=== PATIENT | female | born 1970 | race Caucasian/White ===

== ENCOUNTER 2022-02-11 08:49 | Outpatient (CLI) | payer BC, MEDICAID, SELFPAY ==
--- NOTE | 2022-02-11 11:00 | NEURO_ITS ---
Impression: # Complains of nocturnal paresthesia of hands. # No Carpal Tunnel Syndrome. # No ulnar neuropathy. # Normal needle/EMG exam. Motor Nerve Conduction Upper Extremities Median Nerve Conduction Velocity (m/sec) Terminal Latency (msec) Response Voltage(mV) Elbow-Wrist Wrist Elbow Wrist Right 58 2.9 3 3 Left 60 2.4 2 6 Ulnar Nerve Conduction Velocity (m/sec) Terminal Latency (msec) Response Voltage(mV) Above Elbow Below Elbow Wrist Above Elbow Below Elbow Wrist Right 63 2.0 4 5 Left 63 2.0 7 8 F-Wave Latency Median (ms) Ulnar (ms) Right 24.6 23.9 Left 23.3 24.0 Sensory Nerve Conduction Upper Extremities Median Nerve Stimulation Terminal Latency (msec) Wrist/Digit Response Voltage (uV) Wrist Right 2.9/2.9 63/53 Left 2.7/2.7 76/72 Ulnar Nerve Stimulation Terminal Latency (msec) Wrist/Digit Response Voltage (uV) Wrist Right 2.2 55 Left 2.1 44 Radial Nerve Terminal Latency (msec) Response Voltage(mV) Right 2.0 23 Left 1.7 33 Left Right Muscles Examined Fibrillation Fasciculation Scarcity Voltage Duration Left Right Left Right Left Right Left Right Left Right Deltoid Biceps X X Brachioradialis Triceps X X Pronator Teres X X Ext Indicis X X Ext Digitorum X X Abd Poll Brev X X 1st Dorsal Interosseus X X Abd Dig Min MTDD
== END 2022-02-11 08:50 | disposition home or self-care (01) ==
LOC: ANHNEURO 08:51
PROVIDERS: PCP Family Medicine Adolescent Medicine; Visit Provider Physician Assistant
DX: R20.2 Paresthesia of skin (principal)
CPT/HCPCS: 95886; 95911

== ENCOUNTER 2022-07-30 10:39 | Emergency (ER) | payer MEDICAID, SELFPAY ==
[2022-07-30] VITALS (25 sets, daily range): BP systolic 126–150; BP diastolic 64–90; PULSE 83–97; RESP 14–26; TEMP 36.4; O2SAT 96–100
--- NOTE | ~2022-07-30 | XR_ITS ---
Portable chest x-ray Comparison: 12/13/2009 Clinical History: Syncope, chest pain Findings: Lungs are clear, without focal consolidation or pleural effusion. Cardiomediastinal silho uette is stable. Bones and soft tissues are unremarkable. Impression: Normal chest. Reviewed, dictated and finalized at location . Impression: Normal chest.
[2022-07-30 10:55] LABS: Glucose Point of Care 138 mg/dl (65-105)
--- NOTE | 2022-07-30 11:07 | ECG_ITS ---
Measurements Intervals [place] Rate: 87 P: 12 NM: 124 QRS: 4 QRSD: 92 T: 30 QT: 369 QTc: 444 Interpretive Statements SINUS RHYTHM DELAYED PRECORDIAL R/S TRANSITION BORDERLINE T WAVE ABNORMALITY- INFERIOR LEADS BORDERLINE ECG NO PREVIOUS ECG AVAILABLE FOR COMPARISON Electronically Signed On 07-30-2022 12:11:18 CDT by Usman Lee D.O.
[2022-07-30] MEDS: SODIUM CHLORIDE 0.9% IV 1,000 ML 999 ML IV CONT (11:35)
[2022-07-30] MEDS: ONDANSETRON INJ 4 MG/2 ML VIAL IV PUSH (11:35)
--- NOTE | 2022-07-30 11:39 | ED.SYNCOPE ---
HPI - Syncope General Chief Complaint: Syncope Stated Complaint: syncope Time Seen by Provider: 07/30/22 11:08 Source: patient, EMS, RN notes reviewed and old records reviewed Mode of arrival: EMS Limitations: no limitations History of Present Illness HPI narrative: This is a 51 year old female who presents for evaluation of a syncopal episode. She states she was at this dentist office when she passed out. She states she stood up and she felt nausea and lightheaded. They attempted to walk her to the bathroom and she was told that she passed out. She denies having chest pain or palpitations. She states she thought she was having trouble breathing at the time but denies sob currently. She denies any complaints now other than mild nausea. She reports history of syncope with lab draw in the past. She denies recent vomiting or diarrhea. Related Data Allergies Allergy/AdvReac Type Severity Reaction Status Date / Time No Known Allergies Allergy Unverified 02/05/22 13:49 Review of Systems Constitutional: Constitutional: Denies weakness Cardiovascular: Cardiovascular: Denies syncope, Denies rapid heart rate, Denies irregular heart rhythm, Denies leg edema and Denies dyspnea Respiratory: Respiratory: Denies chest congestion, Denies hemoptysis, Denies excessive phlegm production and Denies dyspnea Gastrointestinal: Gastrointestinal: Denies abdominal pain, Denies hematochezia, Denies diarrhea, Reports nausea and Denies vomiting Genitourinary: Genitourinary: Denies hematuria and Denies dysuria Musculoskeletal: Musculoskeletal: Denies joint swelling, Denies loss of height and Denies muscle weakness Neurologic: Reports syncope, Denies focal weakness and Denies weakness Psychiatric: Psychiatric: Denies as per HPI [facility] Past Medical History Medical History (Updated 07/31/22 @ 00:00 by Background Daemon) Hypertension Surgical History Surgical History Hx of dilation and curettage Family History Family History Father CHF (congestive heart failure) Mother CAD (coronary artery disease) Social History Social History Smoking status: Never smoker Alcohol intake: never Substance use: never Exam Const: General: no acute distress and alert Nutritional Appearance: well nourished Orientation/consciousness: patient oriented x3 Limitations: no limitations HENMT: Head: normal to inspection Mouth: Yes Normal oral and palatal mucosa present, Yes lip normal and Yes moist mucous membranes Throat: posterior oropharynx normal Eyes: EOM: EOMs intact bilaterally Neck: Neck: normal visual inspection Chest: Chest palpation & inspection: normal inspection of the chest Resp: Effort & Inspection: normal respiratory effort Auscultation: clear to auscultation bilaterally Cardio: Rate: regular rate Rhythm: regular rhythm Heart sounds: no murmurs GI: Auscultation: normal bowel sounds Back/Spine/Pelvis: Back: no CVA tenderness Skin: General skin exam: normal color Rashes: no rashes Wounds: no wounds Neuro: General: patient oriented x3, moves all extremities and CN's II-XI intact bilaterally Psych: Mental Status: mental status grossly normal Affect: normal affect Attitude: cooperative Course Reevaluation(s) Reevaluation #1: Patient reports she feels better. She states she is ready to go home. She likely had vasovagal syncopal episode Date: 07/30/22 Time: 14:26 Vital Signs Vital signs: Vital Signs Temperature 97.6 F 07/30/22 10:40 Pulse Rate 87 07/30/22 10:40 Respiratory Rate 16 07/30/22 10:40 Blood Pressure 140/77 07/30/22 10:40 Pulse Oximetry 97 07/30/22 10:40 Oxygen Delivery Room Air 07/30/22 10:40 Temperature 97.6 F 07/30/22 10:40 Pulse Rate 91 07/30/22 14:37 Respiratory Rate 18 07/30/22 14:3
--- NOTE | 2022-07-30 11:43 | PC.NURSE ---
patient denies need for bedside test. order discontinued
[2022-07-30 12:08] LABS: Basophils Percent Auto 0.5 % (0.2-1.2); Eosinophils Absolute Auto 0.1 K/mm3 (0-0.3); Eosinophils Percent Auto 1.4 % (0-4.4); Hematocrit 39.2 % (37.0-47.0); Immature Granulocyte Absolute 0.02 K/mm3 (0.00-0.031); Immature Granulocyte Percent A 0.2 % (0-0.5); Lymphocytes Absolute Auto 0.72 K/mm3 (0.9-3.2); Lymphocytes Percent Auto 8.4 % (18.3-44.2); Mean Corpuscular HGB Conc 30.6 g/dl (32-36); Mean Corpuscular Hemoglobin 27.3 pg (26-34); Mean Corpuscular Volume 89.3 fl (80-100); Mean Platelet Volume 7.7 fl (7.4-10.4); Monocytes Absolute Auto 0.8 K/mm3 (0.1-0.6); Monocytes Percent Auto 8.7 % (2.6-8.5); Neutrophils Absolute Auto 6.9 K/mm3 (1.3-6.7); Neutrophils Percent Auto 80.8 % (45.5-73.1); Platelet Count Result 202 k/mm3 (150-375); Red Blood Count 4.39 M/mm3 (4.2-5.4); Red Cell Distribution Width 13.2 % (11.5-14.5); White Blood Count 8.6 K/mm3 (4.5-10.0)
[2022-07-30 12:13] LABS: Alanine Aminotransferase 24 U/L (6-35); Albumin Level 3.7 g/dL (3.5-5.1); Alkaline Phosphatase 92 U/L (38-126); Anion Gap 6 mmol/L (8-16); Aspartate Amino Transferase 26 U/L (14-36); Bilirubin,Total 0.6 mg/dL (0.2-1.3); Blood Urea Nitrogen 15 mg/dL (7-17); Calcium 7.8 mg/dL (8.4-10.2); Carbon Dioxide 25 mmol/L (22-30); Chloride 108 mmol/L (98-107); Estimated CRCL calculation 89 ml/min; Estimated Glomerular Filt Rate > 60; Glucose 126 mg/dL (65-110); Potassium 4.2 mmol/L (3.4-5.0); Sodium 139 mmol/L (137-145)
[2022-07-30 12:25] LABS: Troponin I < 0.012 ng/mL (0.000-0.034)
== END 2022-07-30 14:39 | disposition home or self-care (01) ==
PROVIDERS: Emergency Provider General Practice; PCP Family Medicine Adolescent Medicine
DX: R55 Syncope and collapse (principal); I10 Essential (primary) hypertension; R94.31 Abnormal electrocardiogram [ECG] [EKG]
CPT/HCPCS: 36415; 71045; 80053; 82948; 83735; 84484; 85025; 93005; 96361; 96374; 99284; J2405; J7030

== ENCOUNTER 2023-06-10 15:57 | Outpatient (CLI) | payer OTHER, SELFPAY ==
[2023-06-10 17:25] LABS: Thyroid Stimulating Hormone 0.911 uIU/mL (0.465-4.680)
[2023-06-13 06:01] LABS: FSH 57.4 mIU/mL (***)
[2023-06-19 10:38] LABS: Estradiol, Ultrasensitive 17 pg/mL
== END 2023-06-10 15:58 | disposition home or self-care (01) ==
LOC: ANHLAB 15:58
PROVIDERS: PCP Family Medicine Adolescent Medicine; Visit Provider Student in an Organized Health Care Education/Training Program
DX: N95.1 Menopausal and female climacteric states (principal)
CPT/HCPCS: 36415; 82670; 83001; 84443

== ENCOUNTER 2024-03-03 11:52 | Emergency (ER) | payer OTHER, SELFPAY ==
[2024-03-03 11:58] VITALS: BP 157/99; PULSE 92; RESP 20; TEMP 36.8; O2SAT 99
--- NOTE | 2024-03-03 13:56 | PC.NURSE ---
patient presents to the desk to state they are leaving to go somewhere else
--- OUTSIDE RECORDS SUMMARY | 2024-03-10 10:55 | XMS_ITS | Patient Health Record ---
Author Organization [facility] Address [address] [place] [address] Care Team Providers Care Lead Burner Helper Name Role Phone Jason Grimes Primary Care Provider Reason For Referral No Information Immunizations Vaccine Route Administration Date Status Comme nts COVID-19 Moderna Booster IM Intramuscular 01/04/2021 Administered COVID-19 Moderna 1ST IM Intramuscular 03/11/2020 Administered COVID-19 Moderna 1ST IM Intramuscular 04/08/2020 Administered EUA date 0. Screening reviewed and consent signed. Patient tolerated well. Plan Of Treatment No Information Insurance Providers Payer Name Payer Address Payer Phone Subscriber Number Group Number Insured Name Patient Relationship to Insured Coverage Start Date Coverage End Date [employer] [address] [place] [address] [id number] Clari Liriano Self - patient is the insured 1 [employer] [address] [place] [address] [id number] Clari Liriano Self - patient is the insured 1
--- OUTSIDE RECORDS SUMMARY | 2024-03-10 10:55 | XMS_ITS | Continuity of Care Document ---
Author Organization [facility] Address [address] [place] [address] Phone Care Team Providers Care Manager Programs Name Role Phone Unavailable Unavailable Unavailable Advance Directives Directive Yes / No Effective Date File Name No Information Encounters Encounter Description Practice Location Reason(s) For Visit Diagnoses Date Provider Providers Copied on Encounter [facility], [address], [place], [place], [id number], [place] tel:[phone] [facility] No Information No Information Referring Provider: MAYELIN Munoz, [address], [place], [address]. tel:[phone] Family History Family Member Type Diagnosis Age At Onset No Information Payers Payer name Insurance type Covered green party ID Authorfrancoa chito(s) [facility] PPO [id number] Social History Type Description Quantity Date Captured Comments Sex Female Smoking Status No Information Chief Complaint And Reason For Visit No Information History Of Present Illness Encounter Date Complaint History Of Prese nt Illness No Information Instructions Date Instruction Additional Infor mation No Information Assessments Type Assessment Date No Information
--- OUTSIDE RECORDS SUMMARY | 2024-03-10 10:55 | XMS_ITS | CONTINUITY OF CARE DOCUMENT ---
Author Name rich villanueva Address Unknown Organization [facility] Address [address] [place] [address] Phone [phone] Care Team Providers Care Marine Steam Fitter Helper Name Role Phone Felix DAILEY, Laya Unavailable Laya Washington MD Unavailable [phone] INSURANCE PROVIDERS Payer name Policy type / Coverage type [place] red [employer] party ID [facility] [id number]
== END 2024-03-03 13:57 | disposition left against medical advice (07) ==
PROVIDERS: PCP Family Medicine Adolescent Medicine
DX: R05.9 Cough, unspecified (principal)
CPT/HCPCS: 99199